=== PATIENT | male | born 1990 | race Caucasian/White ===

== ENCOUNTER 2017-02-07 10:20 | Emergency (ER) | payer OTHER ==
[2017-02-07 11:08] LABS: BILIRUBIN,URINE NEGATIVE (NEGATIVE); PH,URINE >=9.0 PH (5.0-7.5)
[2017-02-07 11:12] LABS: UA CHARGE (STRIP ONLY) YES; UR CULTURE IF IND NOT INDICATED
--- NOTE | 2017-02-07 11:26 | ED Physician Documentation ---
PD HPI NVD - Stated complaint Stated Complaint: FEVER,VOMITING,BODY ACHES - Chief complaint Chief Complaint: General - History obtained from History obtained from: Patient - History of Present Illness Timing - onset: Last night Timing - duration: Hours (6) Timing - details: Abrupt onset, Still present Associated symptoms: Fever, Loss of appetite. No: Abdominal pain, Near syncope / syncope (but feeling weak and lightheaded) Contributing factors: No: Sick contact, Bad food, Travel, Alcohol use Improved by: Eating Similar symptoms before: Has not had sx before Recently seen: Not recently seen Review of Systems Constitutional: reports: Fever, Chills, Myalgias, Fatigue Nose: reports: Congestion Throat: reports: Sore throat Cardiac: denies: Chest pain / pressure, Palpitations, Pedal edema, Calf pain Respiratory: reports: Dyspnea, Cough. denies: Wheezing GI: reports: Nausea. denies: Abdominal Pain, Vomiting, Diarrhea PD PAST MEDICAL HISTORY - Past Medical History Cardiovascular: None Respiratory: None Neuro: None Endocrine/Autoimmune: None GI: None - Present Medications Home Medications: Ambulatory Orders Medication Instructions Recorded Confirmed Naproxen [Naprosyn] 500 mg PO BID PRN #15 tablet 02/07/17 Ondansetron Odt [Zofran] 4 mg TL Q6H PRN #15 tablet 02/07/17 - Allergies Allergies/Adverse Reactions: Allergies Allergy/AdvReac Type Severity Reaction Status Date / Time No Known Drug Allergies Allergy Verified 02/07/17 10:25 PD ED PE NORMAL - Vitals Vital signs reviewed: Yes - General General: Alert and oriented X 3, No acute distress, Well developed/nourished - HEENT HEENT: Ears normal, Pharynx benign. No: Moist mucous membranes - Neck Neck: Supple, no meningeal sign, No adenopathy - Cardiac Cardiac: RRR, No murmur - Respiratory Respiratory: Clear bilaterally - Abdomen Abdomen: Normal bowel sounds, Soft, Non tender, Non distended - Derm Derm: Normal color, Warm and dry, No rash - Extremities Extremities: No tenderness to palpate, Normal ROM s pain, No edema, No calf tenderness / cord - Neuro Neuro: Alert and oriented X 3, No motor deficit, Normal speech Results - Vitals Vitals: Vital Signs - 24 hr 02/07/17 02/07/17 02/07/17 10:23 11:46 13:29 Temperature 36.7 C Heart Rate 97 103 H 98 Respiratory 14 16 16 Rate Blood Pressure 140/80 H 126/78 125/71 O2 Saturation 100 100 98 Oxygen O2 Source Room air - Labs Labs: Laboratory Tests 02/07/17 02/07/17 02/07/17 10:47 11:39 11:39 Urine Color YELLOW Urine Clarity CLEAR Urine pH >=9.0 H Ur Specific [place] 1.015 Urine Protein NEGATIVE Urine Glucose (UA) NEGATIVE Urine Ketones NEGATIVE Urine Occult Blood NEGATIVE Urine Nitrite NEGATIVE Urine Bilirubin NEGATIVE Urine Urobilinogen 0.2 (NORMAL) Ur Leukocyte Esterase NEGATIVE Ur Microscopic Review NOT INDICATED Urine Culture Comments NOT INDICATED Influenza A (Rapid) Negative Influenza B (Rapid) Negative Influenza Types A,B Ag - Group A Strep Rapid Negative PD MEDICAL DECISION MAKING - ED course Complexity details: re-evaluated patient (feeling better with IV fluids and meds. Taking PO well. ), considered differential (seems like viral illness, flu- like with malaise, fevers, vomiting and nausea. ), d/w patient Departure - Departure Disposition: Home, Self Care Clinical Impression: Acute viral syndrome, Dehydration Vomiting with nausea, not intractable Qualifiers: Vomiting type: unspecified Qualified Code(s): R11.2 - Nausea with vomiting, unspecified Condition: Stable Record reviewed to determine appropriate education?: Yes Instructions: ED Nausea Vomiting, ED Viral Syndrome Follow-Up: LISA Patino [Provider Group] Prescriptions: Naproxen [Naprosyn] 500 mg PO BID PRN #15 tablet PRN Reason: Pain Ondansetron Odt [Zofran] 4 mg TL Q6H PRN #15 tablet PRN Reason: Nausea / Vomiting Comments: Drink small frequent fluids. Zofran if needed for nausea/vomiting. Naproxen twice daily for a week for aches/pains. Recheck if not improved over the next 1- 2 days. Forms: Activity restrictions Discharge Date/Time: 02/07/17 13:37
[2017-02-07] MEDS ORDERED: ONDANSETRON 4 MG/2 ML VIAL IVP STA (11:38)
[2017-02-07] MEDS ORDERED: KETOROLAC 60 MG/2 ML VIAL IVP STA (11:38)
[2017-02-07] MEDS ORDERED: SODIUM CHLORIDE 0.9% 1,000 ML IV ONE ×2 (11:38→11:43)
[2017-02-07] MEDS ORDERED: DEXAMETHASONE 10 MG/ML VIAL IVP STA (11:40)
[2017-02-07] MEDS ORDERED: ONDANSETRON 4 MG/2 ML VIAL ONE (11:46)
[2017-02-07] MEDS ORDERED: KETOROLAC 30 MG/ML VIAL ONE (11:46)
[2017-02-07] MEDS ORDERED: DEXAMETHASONE 10 MG/ML VIAL ONE (11:46)
[2017-02-07 12:08] LABS: RAPID STREP SCREEN REAGENT QC YELLOW (YELLOW)
[2017-02-07 13:30] VITALS: BP 125/71
== END 2017-02-07 13:37 | disposition home or self-care (01) ==
LOC: ED 10:20
DX: B34.9 Viral infection, unspecified (principal); E86.0 Dehydration; R11.2 Nausea with vomiting, unspecified
CPT/HCPCS: 81001; 81003; 87070; 87086; 87275; 87276; 87430; 96361; 96374; 96375; 99283; 99284

== ENCOUNTER 2017-04-15 18:48 | Emergency (ER) | payer OTHER ==
[2017-04-15 18:52] VITALS: BP 148/92
[2017-04-15] MEDS ORDERED: IBUPROFEN 800 MG TABLET PO STA (18:58)
[2017-04-15] MEDS ORDERED: HYDROcod/ACETAM 5/325 MG TABLET PO STA (18:58)
--- NOTE | 2017-04-15 19:01 | ED Physician Documentation ---
PD HPI LOWER EXT INJURY - Stated complaint Stated Complaint: LEG PX - Chief complaint Chief Complaint: Ext Problem - History obtained from History obtained from: Patient - History of Present Illness PD HPI LOW EXT INJURY LOCATION: Other (Running to first base today and felt a pop in his right hamstring and now has severe pain with walking and moderate pain at rest in the right hamstring. No other injuries.) Review of Systems Constitutional: denies: Fever, Chills Nose: reports: Reviewed and negative Cardiac: reports: Reviewed and negative Respiratory: reports: Reviewed and negative PD PAST MEDICAL HISTORY - Past Medical History Cardiovascular: None Respiratory: None Neuro: None Endocrine/Autoimmune: None GI: None - Present Medications Home Medications: Ambulatory Orders Medication Instructions Recorded Confirmed HYDROcod/ACETAM 5/325 [[place] 5/325] 1 - 2 ea PO Q6H PRN #15 tablet 04/15/17 Ibuprofen [Motrin] 800 mg PO Q8H PRN #30 tablet 04/15/17 - Allergies Allergies/Adverse Reactions: Allergies Allergy/AdvReac Type Severity Reaction Status Date / Time No Known Drug Allergies Allergy Verified 04/15/17 18:57 - Social History Does the pt smoke?: No Smoking Status: Never smoker PD ED PE NORMAL - Vitals Vital signs reviewed: Yes - General General: Alert and oriented X 3, No acute distress - Extremities Extremities: Other (Tender the right hamstring with normal range of motion, a lot of pain with forced extension at the knee. NVI in the distal extremity.) - Neuro Neuro: Alert and oriented X 3, Normal speech - Psych Psych: Normal mood, Normal affect Results - Vitals Vitals: Vital Signs - 24 hr 04/15/17 18:50 Temperature 35.6 C L Heart Rate 100 Respiratory 17 Rate Blood Pressure 148/92 H O2 Saturation 96 Oxygen O2 Source Room air Departure - Departure Disposition: Home, Self Care Clinical Impression: Tear of right hamstring Condition: Good Record reviewed to determine appropriate education?: Yes Instructions: ED Strain Muscle Ext Prescriptions: Ibuprofen [Motrin] 800 mg PO Q8H PRN #30 tablet PRN Reason: PAIN &/OR FEVER HYDROcod/ACETAM 5/325 [[place] 5/325] 1 - 2 ea PO Q6H PRN #15 tablet PRN Reason: Pain Comments: Call your doctor to arrange a follow-up appointment, make the next available appointment. In the interim, return anytime if worse or if new symptoms develop. Your blood pressure was elevated today on check into the emergency department. This does not mean that you have hypertension, it is a common phenomenon to come to the emergency department and have elevated blood pressure. I recommend that she see her primary care physician within the week to have it rechecked when you are feeling better.
[2017-04-15] MEDS ORDERED: HYDROcod/ACETAM 5/325 MG TABLET ONE (19:14)
[2017-04-15] MEDS ORDERED: IBUPROFEN 800 MG TABLET PO ONE (19:14)
== END 2017-04-15 19:20 | disposition home or self-care (01) ==
LOC: ED 18:48
DX: S76.811A Strain of other specified muscles, fascia and tendons at thigh level, right thigh, initial encounter (principal); Y93.64 Activity, baseball
CPT/HCPCS: 99283; A9270